=== PATIENT | female | born 1975 | race American Indian/Alaskan Native ===

== ENCOUNTER 2017-10-21 09:31 | Outpatient (CLI) | payer OTHER ==
--- NOTE | 2017-10-21 10:56 | XRay Report ---
XRAY RIGHT SHOULDER THREE VIEWS: 10/21/17 09:31:00 CLINICAL: Right shoulder pain. FINDINGS: Normal glenohumeral alignment. Normal AC joint. No fracture or dislocation. A small cyst of the greater tuberosity of the humerus. Normal soft tissues. IMPRESSION: A small humeral cyst with uncertain significance. The shoulder is otherwise normal.
== END 2017-10-21 09:32 | disposition home or self-care (01) ==
LOC: SPVIMAG 09:31
PROVIDERS: ATTEND Orthopaedic Surgery
DX: M25.811 Other specified joint disorders, right shoulder (principal)